=== PATIENT | female | born 1985 | race Caucasian/White ===

== ENCOUNTER 2018-08-30 14:11 | Day surgery (SDC) | payer OTHER, SELFPAY ==
[2018-08-13 07:34] VITALS: BMI 32.4
[2018-08-30] VITALS (7 sets, daily range): BP systolic 101–128; BP diastolic 61–86; PULSE 79–83; RESP 14–24; TEMP 36.2–36.9; O2SAT 96–100; BMI 32.4
[2018-08-30] MEDS: LACTATED RINGERS 1,000 ML 42 ML IV (14:42)
--- NOTE | 2018-08-30 17:03 | PM.PREOP ---
Pre-operative Note Interval Note History & Physical reviewed/Exam performed by Physician: Yes Changes to H&P: No
--- NOTE | 2018-08-30 17:03 | PM.OP.1 ---
Operative Date/Time/Diagnoses Date of procedure: 08/30/18 Time of procedure: 17:03 Pre-op diagnosis: Left ankle lateral instability Post-op diagnosis: same Procedure & Clinicians Procedure: Left lateral ankle stabilization with anchor system Same procedure as scheduled: Yes Indications: Left lateral ankle instability. Conservative measures failed to alleviate the pain and instability and she wished to have surgical intervention at this time. Surgeon: Mary Mcdonald Click Yes if Unassisted: Yes Anesthesia Type: General and Peripheral nerve block Operative Notes Closure Type: primary Specimen(s): none sent Prosthetic devices, grafts, tissues, transplants, or devices: Ar[employer]rex [place] anchor system 2-0 Ethibond, 3-0/4-0 Vicryl, 3-0 Nylon Applied: implant(s) Estimated Blood Loss (mL): 20 Blood products transfused: none Procedure in detail: The patient was given a lower extremity block rendered by the anesthesiologist in the preoperative holding area. The patient was brought into the operating room and placed on the operating table in the supine position. After induction of general anesthesia the tourniquet was placed about the left thigh and a small bump placed under the ipsilateral hip. The foot and ankle were prepped in the usual aseptic manner. After a check of anesthesia the tourniquet was inflated and an incision was made on the dorsal lateral aspect of the left ankle following the curvature of the distal anterolateral ankle gutter. The incision was deepened through subcutaneous tissues being careful to identify and retract all vital neural and vascular structures. All bleeders were cauterized and ligated as necessary. The anterior talofibular ligament appeared torn and there was still a segment that was more noticeable on the talar component and the fibular component. Further dissection verified the talar body and neck visualizing this on fluoroscopic examination. The area was irrigated with copious amounts of normal sterile saline and using Ethibond with the Foot and Ankle loaded, the ATFL was repaired. Using fluoroscopic examination the talar component was delivered into the edge of the body prior to the neck and verified on C-arm. First the drill was used then tapped then the anchor inserted. This was then matched with the fibula where I had dissected the lateral anterior aspect of the fibula to wear the 2nd portion of the anchor system would be placed approximately 1.5 cm from the tip of the fibula. The ATFL had loosened just a little bit with the insertion of talar component so this was reinforced at this time with further Ethibond repair. After the drilling of the fibular component and verifying this on C-arm, the FiberTape was threaded into this anchor and under appropriate tension it was inserted. After irrigating with copious amounts of normal sterile saline a series of additional Ethibond and Vicryl sutures were used to continue the repair as well as the FiberWire from the anchor in a [id number] technique with the former retinaculum and including the rudimentary ATFL. Once this was secured this strength was checked and found to be a significant improvement in stability laterally compared to preoperative. The tourniquet was deflated and a prompt hyperemic response was seen to the foot and ankle. Subcutaneous closure was performed using 3-0 and 4-0 Vicryl and 3 0-nylon to the skin. A dressing was placed consisting of Adaptic 4x4s, Kerlix, Tommy stockinette and her postsurgical boot. The patient was transferred the PACU with vital signs stable. Complications: none Condition: stable Disposition: PACU Plan for aftercare: Following a period of postoperative monitoring the patient be discharged home on written and oral postop instructions including keeping the dressing dry and intact, nonweightbearing to the foot, ice and elevating the foot when seated home. DVT prevention techniques were reviewed. Her 1st postoperative visit will be a suture check and dressing change and then after the 3rd week sutures will be removed if they have not yet been removed and she can begin some guarded weight-bearing and transition into physical therapy with her boot on.
[2018-08-30] MEDS: CEFAZOLIN 2 GM/100 ML FROZ.PIGGY IV (17:15)
--- NOTE | 2018-08-30 17:18 | SUR.PREOP ---
Block start time [1653] . Monitoring initiated and maintained throughout procedure. Oxygen and medications given per anesthesiologist instructions. Patient remained stable throughout procedure, no adverse reactions noted. Block end time 1708[].
[2018-08-30] MEDS: MIDAZOLAM 2 MG/2 ML VIAL IV (17:30)
[2018-08-30] MEDS: fentaNYL 100 MCG/2 ML INJ IV (17:30)
--- NOTE | 2018-08-30 18:00 | SUR.OPER ---
Supine on padded OR bed, head on pillow, arms secured on padded arm boards at <90 degrees abduction, legs uncrossed, safety belt at thigh, tape over blanket over lower legs.
[2018-08-30] MEDS: BUPIVACAINE 0.5% (PF) VIAL 30 ML INJ (18:29)
[2018-08-30] MEDS: LACTATED RINGERS 1,000 ML 100 ML IV (18:44)
--- NOTE | 2018-08-30 18:54 | SUR.OPER ---
MINI C-ARM TIME 2:48
== END 2018-08-30 20:08 | disposition home or self-care (01) ==
PROVIDERS: Family Provider Psychiatry & Neurology Psychiatry; PCP Physician Assistant; Visit Provider Podiatrist
PROC: (CPT 27695; principal; 2018-03-29 11:30)
DX: M25.372 Other instability, left ankle (principal); G89.18 Other acute postprocedural pain
CPT/HCPCS: 27695; 64445; 64450; J0690; J1100; J2250; J2405; J2704; J3010

== ENCOUNTER → 2020-11-23 12:19 | Outpatient (CLI) | payer OTHER, SELFPAY ==
[2020-11-23 13:22] LABS: Alanine Aminotransferase 19 IU/L (<35); Albumin 4.6 g/dL (3.5-5.0); Albumin Globulin Ratio 1.4 (1.0-2.8); Alkaline Phosphatase 68 U/L (38-126); Aspartate Aminotransferase 29 IU/L (14-36); BUN Creatinine Ratio 19.3 (6-22); Bilirubin Total 0.6 mg/dL (0.2-1.3); Blood Urea Nitrogen 11 mg/dL (7-17); Calcium 9.3 mg/dL (8.4-10.2); Carbon Dioxide 26 mmol/L (22-32); Chloride 102 mmol/L (98-107); Cholesterol 201 mg/dL (140-199); Estimated Glomerular Filt Rate > 60.0 mL/min (>60); Globulin 3.4 g/dL (1.7-4.1); Glucose 103 mg/dL (70-100); HDL Cholesterol 68 mg/dL (40-60); HEMOLYSIS < 15 (0-50); LDL Cholesterol Calculated 96 mg/dL (<100); Potassium 4.2 mmol/L (3.4-5.1); Sodium 139 mmol/L (137-145); Triglycerides 183 mg/dL (35-150)
[2020-11-23 13:52] LABS: Thyroid Stimulating Hormone 0.673 uIU/mL (0.47-4.68)
== END ==
PROVIDERS: Family Provider Psychiatry & Neurology Psychiatry; PCP Family Medicine; Referring Provider Psychiatry & Neurology Psychiatry; Visit Provider Psychiatry & Neurology Psychiatry
DX: Z79.899 Other long term (current) drug therapy (principal)
CPT/HCPCS: 36415; 80053; 80061; 84443

== ENCOUNTER 2021-06-12 13:03 | Emergency (ER) | payer OTHER, SELFPAY ==
[2021-06-12] VITALS (14 sets, daily range): BP systolic 105–134; BP diastolic 66–86; PULSE 107–159; RESP 20–22; TEMP 36.6–36.9; O2SAT 97–100; BMI 35.9
[2021-06-12] MEDS: SODIUM CHLORIDE 0.9% 1,000 ML 125 ML IV (13:30)
--- NOTE | 2021-06-12 13:33 | ED_ITS ---
HPI - General Adult General Chief complaint: Toxicology Problem Stated complaint: Took too much adderall Time Seen by Provider: 06/12/21 13:16 Source: patient and family Mode of arrival: Ambulatory History of Present Illness HPI narrative: Patient is a 35-year-old female. Has a history of ADD and autism. Is on multiple mental health medications. This morning she states that she accidentally took upwards of 24x 20 mg Adderall tablets. She states she did this at approximately 1130 today. She states that she thought that she was blayne ing her daily medicines that she normally combines altogether and takes but then realized that it was the Adderall that she took not her daily medicines. The only other medicine she took this morning was her Percocet for her fibromyalgia. Her mother contacted poison Control who told her to come to the emergency department for further evaluation. Here patient states she does feel like her head is somewhat scattered. She does feel somewhat anxious but no chest pain. No shortness of breath. No palpitations. No abdominal pain. No nausea vomiting. States that she was not trying to hurt herself but did this on accident. Related Data Home Medications Medication Instructions Recorded Confirmed dextroamphetamine-amphetamine 20 20 mg PO DAILY 08/13/18 08/30/18 mg tablet (Adderall) duloxetine 20 mg capsule,delayed 20 mg PO DAILY 08/13/18 08/30/18 release (Cymbalta) eszopiclone 3 mg tablet 3 mg PO DAILY 08/13/18 08/30/18 lamotrigine 25 mg tablet 25 mg PO DAILY 08/13/18 08/30/18 Allergies Allergy/AdvReac Type Severity Reaction Status Date / Time iodine Allergy Mild RASH Verified 08/30/18 14:22 Review of Systems Constitutional Constitutional: Reports system reviewed and no additional complaints, except as documented Cardiovascular Cardiovascular: Reports as per HPI and Reports system reviewed and no additional complaints, except as documented Respiratory Respiratory: Reports as per HPI and Reports system reviewed and no additional complaints, except as documented Gastrointestinal Gastrointestinal: Reports system reviewed and no additional complaints, except as documented Musculoskeletal Musculoskeletal: Reports system reviewed and no additional complaints, except as documented Integumentary/Breasts Skin/Breast: Reports system reviewed and no additional complaints, except as documented Neurologic Neurologic: Reports system reviewed and no additional complaints, except as documented and Reports as per HPI Hematologic/Lymphatic On Anticoagulants: No Patient History Medical History Anemia Asperger's disorder Autism Depression DJD (degenerative joint disease) Fibromyalgia Headache, migraine Surgical History (Updated 08/13/18 @ 07:37 by Olga Lidia Mercado RN) History of ankle surgery (~10/27/14) Hx of tonsillectomy Social History household members: family Smoking Status: Never smoker Smoking Status: Never smoker Substance Use Type: does not use Exam Initial Vital Signs Initial Vital Signs: Vital Signs Pulse Rate 114 H 06/12/21 13:13 Pulse Oximetry 100 06/12/21 13:13 HENMT Head: normal to inspection and normocephalic Resp Effort & Inspection: normal respiratory effort Auscultation: clear to auscultation bilaterally Cardio Rate: tachycardic Rhythm: regular rhythm GI Inspection: normal to inspection Palpation: soft and No tender Skin General: no rashes or lesions noted Neuro General: patient alert, patient awake and moves all extremities Cognition: normal cognition Speech: speech normal Extrem General: normal to inspection and capillary refill normal Psych Appearance: grossly normal and well kempt Scores GCS [place] coma scale eye opening: Spontaneous [place] coma scale verbal response: Orientated [place] coma scale motor response: Obey commands [place] coma scale total score: 15 Course Orders Ordered: ED Orders 06/12/21 13:35 Acetaminophen Stat Complete Blood Count AUTO DIFF Stat Comprehensive Metabolic Panel Stat Ethanol (ETOH) Stat Lactate (Lactic Acid) Stat Lipase Stat Magnesium Stat Test Serum,Qual Stat Salicylate Stat 06/12/21 13:43 EKG-12 Lead Stat 06/12/21 15:34 Urine Culture Stat Urine Drug Screen, Rapid Stat Urine Microscopic Stat 06/12/21 17:44 EKG-12 Lead Stat Sodium Chloride (Normal Saline 0.9%) 1,000 mls @ 125 mls/hr IV CONT CAPRICE Last Admin: 06/12/21 13:30 Dose: 125 mls/hr Documented by: MICH Vital Signs Vital signs: Vital Signs - 8 hr 06/12/21 13:13 06/12/21 13:15 06/12/21 13:30 Temperature 98.5 F Pulse Rate 114 H 159 H 107 H Respiratory Rate 20 20 Blood Pressure 134/82 130/86 Pulse Oximetry 100 99 100 06/12/21 14:00 06/12/21 14:30 06/12/21 15:06 Temperature Pulse Rate 108 H 113 H 123 H Respiratory Rate 20 20 Blood Pressure 131/79 130/70 Pulse Oximetry 100 100 06/12/21 15:30 06/12/21 15:45 06/12/21 16:00 Temperature Pulse Rate 118 H 123 H 121 H Respiratory Rate 20 22 22 Blood Pressure 105/69 105/66 Pulse Oximetry 99 97 98 06/12/21 16:30 06/12/21 16:31 06/12/21 17:00 Temperature Pulse Rate 118 H 118 H 116 H Respiratory Rate 22 22 Blood Pressure 126/69 119/68 Pulse Oximetry 99 98 98 Medical Decision Making Lab Data Lab results reviewed: Yes I reviewed the patient's lab results. Result diagrams: 06/12/21 13:35 06/12/21 13:35 Labs: Lab Results 06/12/21 06/12/21 06/12/21 Range/Units 13:35 13:35 13:35 WBC 7.3 (4.5-11.0) X10^3/uL RBC 4.65 (4.0-5.2) X10^6/uL Hgb 14.3 (12.0-16.0) g/dL Hct 41.8 (36-46) % MCV 89.9 (80-100) fL MCH 30.8 (26-34) PG MCHC 34.3 (30-36) % RDW 12.9 (11.6-14.8) % Plt Count 392 (150-400) X10^3/uL Neut % (Auto) 64.2 (50-75) % Lymph % (Auto) 25.4 (25-40) % [place] % (Auto) 7.9 (3-14) % Eos % (Auto) 2.1 (2-4) % Baso % (Auto) 0.4 (0-2) % Neut # (Auto) 4700 (7157-1573) /uL Lymph # (Auto) 1900 (2450-7048) /uL [place] # (Auto) 600 (0-900) /uL Eos # (Auto) 200 (0-450) /uL Baso # (Auto) 0 (0-100) /uL Sodium 140 (137-145) mmol/L Potassium 4.3 (3.4-5.1) mmol/L Chloride 104 (98-107) mmol/L Carbon Dioxide 27 (22-32) mmol/L BUN 11 (7-17) mg/dL Creatinine 0.66 (0.52-1.04) mg/dL Estimated GFR > 60 (>60) mL/min BUN/Creatinine Ratio 16.7 (6-22) Glucose 145 H (70-100) mg/dL Lactate 1.6 (0.7-2.1) mmol/L Calcium 9.3 (8.4-10.2) mg/dL Magnesium (1.6-2.3) mg/dL Total Bilirubin 0.5 (0.2-1.3) mg/dL AST 25 (14-36) IU/L ALT 14 (<35) IU/L Alkaline Phosphatase 65 (38-126) U/L Total Protein 7.7 (6.3-8.2) g/dL Albumin 4.4 (3.5-5.0) g/dL Globulin 3.3 (1.7-4.1) g/dL Albumin/Globulin Ratio 1.3 (1.0-2.8) Lipase (23-300) U/L Serum , Qual (Negative) Urine RBC (0-5/HPF) Urine WBC (0-5/HPF) Ur Squamous Epith Cells (0-5/HPF) Amorphous Sediment Urine Bacteria (None) Urine Mucus (Negative) Ur Culture Indicated? Salicylates (<20) mg/dL U Opiates 300ng/mL cut (Negative) Ur Oxycodone Screen (Negative) Urine Methadone Screen (Negative) Acetaminophen < 10 (10-30) ug/mL Ur Barbiturates Screen (Negative) U Tricyclic Antidepress (Negative) Ur Phencyclidine Scrn (Negative) Ur Amphetamines Screen (Negative) U Methamphetamines Scrn (Negative) Ur MDMA Scrn (Ecstasy) (Negative) U Benzodiazepines Scrn (Negative) Urine Cocaine Screen (Negative) U Marijuana (THC) Screen (Negative) Ethyl Alcohol < 10 ( - 10) mg/dL 06/12/21 06/12/21 06/12/21 Range/Units 13:35 13:35 13:35 WBC (4.5-11.0) X10^3/uL RBC (4.0-5.2) X10^6/uL Hgb (12.0-16.0) g/dL Hct (36-46) % MCV (80-100) fL MCH (26-34) PG MCHC (30-36) % RDW (11.6-14.8) % Plt Count (150-400) X10^3/uL Neut % (Auto) (50-75) % Lymph % (Auto) (25-40) % [place] % (Auto) (3-14) % Eos % (Auto) (2-4) % Baso % (Auto) (0-2) % Neut # (Auto) (1454-1012) /uL Lymph # (Auto) (5266-6031) /uL [place] # (Auto) (0-900) /uL Eos # (Auto) (0-450) /uL Baso # (Auto) (0-100) /uL Sodium (137-145) mmol/L Potassium (3.4-5.1) mmol/L Chloride (98-107) mmol/L Carbon Dioxide (22-32) mmol/L BUN (7-17) mg/dL Creatinine (0.52-1.04) mg/dL Estimated GFR (>60) mL/min BUN/Creatinine Ratio (6-22) Glucose (70-100) mg/dL Lactate (0.7-2.1) mmol/L Calcium (8.4-10.2) mg/dL Magnesium 1.9 (1.6-2.3) mg/dL Total Bilirubin (0.2-1.3) mg/dL AST (14-36) IU/L ALT (<35) IU/L Alkaline Phosphatase (38-126) U/L Total Protein (6.3-8.2) g/dL Albumin (3.5-5.0) g/dL Globulin (1.7-4.1) g/dL Albumin/Globulin Ratio (1.0-2.8) Lipase 159 (23-300) U/L Serum , Qual Negative (Negative) Urine RBC (0-5/HPF) Urine WBC (0-5/HPF) Ur Squamous Epith Cells (0-5/HPF) Amorphous Sediment Urine Bacteria (None) Urine Mucus (Negative) Ur Culture Indicated? Salicylates < 1.0 (<20) mg/dL U Opiates 300ng/mL cut (Negative) Ur Oxycodone Screen (Negative) Urine Methadone Screen (Negative) Acetaminophen (10-30) ug/mL Ur Barbiturates Screen (Negative) U Tricyclic Antidepress (Negative) Ur Phencyclidine Scrn (Negative) Ur Amphetamines Screen (Negative) U Methamphetamines Scrn (Negative) Ur MDMA Scrn (Ecstasy) (Negative) U Benzodiazepines Scrn (Negative) Urine Cocaine Screen (Negative) U Marijuana (THC) Screen (Negative) Ethyl Alcohol ( - 10) mg/dL 06/12/21 06/12/21 Range/Units 15:34 15:34 WBC (4.5-11.0) X10^3/uL RBC (4.0-5.2) X10^6/uL Hgb (12.0-16.0) g/dL Hct (36-46) % MCV (80-100) fL MCH (26-34) PG MCHC (30-36) % RDW (11.6-14.8) % Plt Count (150-400) X10^3/uL Neut % (Auto) (50-75) % Lymph % (Auto) (25-40) % [place] % (Auto) (3-14) % Eos % (Auto) (2-4) % Baso % (Auto) (0-2) % Neut # (Auto) (1693-7566) /uL Lymph # (Auto) (9292-2412) /uL [place] # (Auto) (0-900) /uL Eos # (Auto) (0-450) /uL Baso # (Auto) (0-100) /uL Sodium (137-145) mmol/L Potassium (3.4-5.1) mmol/L Chloride (98-107) mmol/L Carbon Dioxide (22-32) mmol/L BUN (7-17) mg/dL Creatinine (0.52-1.04) mg/dL Estimated GFR (>60) mL/min BUN/Creatinine Ratio (6-22) Glucose (70-100) mg/dL Lactate (0.7-2.1) mmol/L Calcium (8.4-10.2) mg/dL Magnesium (1.6-2.3) mg/dL Total Bilirubin (0.2-1.3) mg/dL AST (14-36) IU/L ALT (<35) IU/L Alkaline Phosphatase (38-126) U/L Total Protein (6.3-8.2) g/dL Albumin (3.5-5.0) g/dL Globulin (1.7-4.1) g/dL Albumin/Globulin Ratio (1.0-2.8) Lipase (23-300) U/L Serum , Qual (Negative) Urine RBC None seen (0-5/HPF) Urine WBC 1-5/hpf (0-5/HPF) Ur Squamous Epith Cells 1-5 /hpf (0-5/HPF) Amorphous Sediment 1+ Urine Bacteria Moderate (10-30) H (None) Urine Mucus 1+ H (Negative) Ur Culture Indicated? Specimen cultured Salicylates (<20) mg/dL U Opiates 300ng/mL cut Negative (Negative) Ur Oxycodone Screen Negative (Negative) Urine Methadone Screen Negative (Negative) Acetaminophen (10-30) ug/mL Ur Barbiturates Screen Negative (Negative) U Tricyclic Antidepress Negative (Negative) Ur Phencyclidine Scrn Negative (Negative) Ur Amphetamines Screen Positive H (Negative) U Methamphetamines Scrn Negative (Negative) Ur MDMA Scrn (Ecstasy) Negative (Negative) U Benzodiazepines Scrn Negative (Negative) Urine Cocaine Screen Negative (Negative) U Marijuana (THC) Screen Negative (Negative) Ethyl Alcohol ( - 10) mg/dL Point of Care Testing Test Results Negative Urine Dip Bedside Urine Glucose Negative Bedside Urine Bilirubin - Negative Bedside Urine Ketone - Negative Urine Specific [place] 1.020 Bedside Urine Occult Blood - Negative Bedside Urine Protein - Negative Bedside Urine Urobilinogen - Negative Bedside Urine Nitrite - Negative Bedside Urine Leukocytes +/- 15 Esterase Point of care testing: Point of Care Testing Test Results Negative Urine Dip Bedside Urine Glucose Negative Bedside Urine Bilirubin - Negative Bedside Urine Ketone - Negative Urine Specific [place] 1.020 Bedside Urine Occult Blood - Negative Bedside Urine Protein - Negative Bedside Urine Urobilinogen - Negative Bedside Urine Nitrite - Negative Bedside Urine Leukocytes +/- 15 Esterase ECG Data Attestation: I personally reviewed and interpreted this ECG as follows: Prior ECG tracings: available for review Interpretation: Sinus rhythm Ventricular rate 99 Left axis deviation Normal QRS Normal QTC No ST T wave changes Sinus tachycardia Ventricular rate 116 Normal axis Normal QRS QTC [address] T wave changes MDM Narrative Medical decision making narrative: Other than having some tachycardia the patient has remained asymptomatic. She has been observed for 6 hours after the ingestion. This was according to her an accidental ingestion and was not a suicide attempt. Her labs have remained unremarkable. Patient is here with her mother. Will discharge home with her mother. They were given return precautions. They expressed understanding and agreement. Discharge Plan Departure Patient Disposition: Home Clinical Impression: Accidental medication overdose Instructions: DI for Safely Taking and Storing Medications -- Adults Activity Restrictions/Additional Instructions: I recommend that you take all of your medications as directed. Contact your primary doctor for a follow-up. You have no restrictions on your diet or your activities. Return to the emergency department for any new or worsening symptoms. Prescriptions: No Action lamotrigine 25 mg Tablet 25 mg PO DAILY 0RF dextroamphetamine-amphetamine [Adderall] 20 mg Tablet 20 mg PO DAILY 0RF duloxetine [Cymbalta] 20 mg Capsule,Delayed Release(Dr/Ec) 20 mg PO DAILY 0RF eszopiclone 3 mg Tablet 3 mg PO DAILY 0RF Referrals: Leonard Verduzco MD [Primary Care Provider] - Stand Alone Forms: Naloxone Standing Order MEDHAT
[2021-06-12 13:49] LABS: Add Manual Diff / Slide Review NO; Basophils Absolute Auto 0 /uL (0-100); Basophils Percent Auto 0.4 % (0-2); Eosinophils Absolute Auto 200 /uL (0-450); Eosinophils Percent Auto 2.1 % (2-4); Hematocrit 41.8 % (36-46); Hemoglobin 14.3 g/dL (12.0-16.0); Lymphocytes Absolute Auto 1900 /uL (1100-4500); Lymphocytes Percent Auto 25.4 % (25-40); Mean Corpuscular HGB Conc 34.3 % (30-36); Mean Corpuscular Hemoglobin 30.8 PG (26-34); Mean Corpuscular Volume 89.9 fL (80-100); Monocytes Absolute Auto 600 /uL (0-900); Monocytes Percent Auto 7.9 % (3-14); Neutrophils Absolute Auto 4700 /uL (1500-7000); Neutrophils Percent Auto 64.2 % (50-75); Platelet Count 392 X10^3/uL (150-400); Red Blood Cell Count 4.65 X10^6/uL (4.0-5.2); Red Cell Distribution Width 12.9 % (11.6-14.8); White Blood Cell Count 7.3 X10^3/uL (4.5-11.0)
[2021-06-12 14:01] LABS: Lipase 159 U/L (23-300); Magnesium 1.9 mg/dL (1.6-2.3); Salicylate < 1.0 mg/dL (<20)
[2021-06-12 14:03] LABS: Lactate (Lactic Acid) 1.6 mmol/L (0.7-2.1)
[2021-06-12 14:10] LABS: Pregnancy Test Serum,Qual Negative (Negative)
[2021-06-12 14:12] LABS: Acetaminophen < 10 ug/mL (10-30); Alanine Aminotransferase 14 IU/L (<35); Albumin 4.4 g/dL (3.5-5.0); Albumin Globulin Ratio 1.3 (1.0-2.8); Alkaline Phosphatase 65 U/L (38-126); Aspartate Aminotransferase 25 IU/L (14-36); BUN Creatinine Ratio 16.7 (6-22); Bilirubin Total 0.5 mg/dL (0.2-1.3); Blood Urea Nitrogen 11 mg/dL (7-17); Calcium 9.3 mg/dL (8.4-10.2); Carbon Dioxide 27 mmol/L (22-32); Chloride 104 mmol/L (98-107); Estimated Glomerular Filt Rate > 60 mL/min (>60); Ethanol (ETOH) < 10 mg/dL; Globulin 3.3 g/dL (1.7-4.1); Glucose 145 mg/dL (70-100); HEMOLYSIS < 15 (0-50); Potassium 4.3 mmol/L (3.4-5.1); Sodium 140 mmol/L (137-145); Total Protein 7.7 g/dL (6.3-8.2)
[2021-06-12 15:57] LABS: UR Morphine/Opiate cutoff 300 Negative (Negative); Ur Creatinine Normal (Normal); Ur Specific Gravity Normal (Normal); Urine Amphetamines Positive (Negative); Urine Barbiturates Negative (Negative); Urine Benzodiazepines Negative (Negative); Urine Cocaine Negative (Negative); Urine MDMA Negative (Negative); Urine Methadone Negative (Negative); Urine Methamphetamines Negative (Negative); Urine Oxycodone Negative (Negative); Urine Phencyclidine Negative (Negative); Urine Tetrahydrocannabinol Negative (Negative); Urine Tricyclic Antidepressant Negative (Negative); Urine pH Normal (Normal)
[2021-06-12 16:03] LABS: Amorphous Sediment Urine 1+; Bacteria Urine Moderate (10-30); Mucus Urine 1+ (Negative); RBC Urine None Seen (0-5/HPF); Squamous Epithelial Cell Urine 1-5 /HPF (0-5/HPF); WBC Urine 1-5/HPF (0-5/HPF)
[2021-06-12 16:04] LABS: Culture Indicated Urine Specimen Cultured
--- NOTE | 2021-06-12 17:02 | PC.NURSE ---
called and spoke with [place] poison control [phone] verified after 6 hrs with immediate release adderall we should begin to see and monitor for decrease in symptoms. would need decrease in trends of tachycardia and a repeat ekg recommended along with decrease of anxiety and possible side effect symptoms from od to be able to dc home (recommedation of poison control)
== END 2021-06-12 18:07 | disposition home or self-care (01) ==
PROVIDERS: Emergency Provider Emergency Medicine; Family Provider Psychiatry & Neurology Psychiatry; PCP Family Medicine
DX: T43.621A Poisoning by amphetamines, accidental (unintentional), initial encounter (principal); R00.0 Tachycardia, unspecified
CPT/HCPCS: 36415; 80053; 80305; 80320; 80329; 81003; 81015; 81025; 83605; 83690; 83735; 84703; 85025; 87086; 93005; 93010; 99284; G0480

== ENCOUNTER → 2022-03-01 15:44 | Outpatient (CLI) | payer OTHER, SELFPAY ==
--- NOTE | 2022-03-01 | DI.RAD.S_ITS ---
PROCEDURE: XR SHOULDER RT MIN 2V INDICATIONS: RIGHT SHOULDER PAIN TECHNIQUE: 3 views of the shoulder were acquired. COMPARISON: None. FINDINGS: Bones: No fractures or dislocations. No suspicious bony lesions. Visualized ribs appear intact. Mild periarticular osteophyte formation at the acromioclavicular and glenohumeral joints. Soft tissues: No suspicious soft tissue calcifications. IMPRESSION: Osteoarthritis. No acute fracture. No osseous lesion. If symptoms and/or clinical suspicion for pathology persist, further assessment with repeat, or advanced imaging (e.g., CT, MRI, or bone scan) may be helpful for further assessment. Dictated by: Kathleen Rodriguez M.D. on 03/01/2022 at 16:47 Approved by: Kathleen Rodriguez M.D. on 03/01/2022 at 16:47
== END ==
PROVIDERS: Family Provider Psychiatry & Neurology Psychiatry; PCP Family Medicine; Referring Provider Nurse Practitioner Family; Visit Provider Nurse Practitioner Family
DX: M19.011 Primary osteoarthritis, right shoulder (principal); M25.511 Pain in right shoulder
CPT/HCPCS: 73030

== ENCOUNTER → 2023-03-21 15:01 | Outpatient (CLI) | payer OTHER, SELFPAY ==
--- NOTE | 2023-03-21 15:07 | DI.RAD.S_ITS ---
PROCEDURE: XR ELBOW RT MIN 3V INDICATIONS: LATERAL EPICONDYLITIS OF RT HUMMERUS TECHNIQUE: 3 views of the elbow were acquired. COMPARISON: None. FINDINGS: Bones: No fractures or dislocations. Joint spaces are maintained. No suspicious bony lesions. Soft tissues: No elbow joint effusion. No suspicious soft tissue calcifications. IMPRESSION: No acute bony abnormality or significant joint effusion. Dictated by: Luann Arias M.D. on 03/21/2023 at 17:20 Approved by: Luann Arias M.D. on 03/21/2023 at 17:20
== END ==
LOC: RAD 15:04
PROVIDERS: Family Provider Psychiatry & Neurology Psychiatry; PCP Family Medicine; Referring Provider Nurse Practitioner Family; Visit Provider Nurse Practitioner Family
DX: M77.11 Lateral epicondylitis, right elbow (principal)
CPT/HCPCS: 73080